=== PATIENT | female | born 1980 | race Caucasian/White ===

== ENCOUNTER → 2016-06-02 | Outpatient (CLI) | payer BC ==
[~2016-06-02] MED LIST: LEVO75TA PO; PRENTAB26 PO
[2016-06-02 11:31] LABS: HEMATOCRIT 38.9 % (37-47)
[2016-06-02 12:36] LABS: URINE APPEARANCE CLEAR (CLEAR); URINE BILIRUBIN NEG (NEG); URINE COLOR YELLOW; URINE EPITHELIAL CELL AUTO >30 /lpf (0-5); URINE NITRITE NEG (NEG); URINE PH 6.5 (4.5-7.5); UROBILINOGEN NEG (NEG)
[2016-06-02 12:38] LABS: MANUAL MICROSCOPIC REQUIRED? NO; REVIEW REQ? NO
[2016-06-02 12:57] LABS: GTGD 50 Grams
== END | disposition home or self-care (01) ==
LOC: C.LAB1850 10:22
PROVIDERS: ATTEND Obstetrics & Gynecology
DX: O09.03 Supervision of pregnancy with history of infertility, third trimester (principal)

== ENCOUNTER → 2016-06-09 | Outpatient (CLI) | payer BC | END | disposition home or self-care (01) | LOC: C.LAB1850 08:14 | PROVIDERS: ATTEND Obstetrics & Gynecology | DX: O28.9 Unspecified abnormal findings on antenatal screening of mother (principal) ==

== ENCOUNTER 2016-07-31 11:24 | Outpatient (CLI) | payer BC ==
[~2016-07-31] VITALS: Ht 162.6 cm; Wt 69.0 kg
[2016-07-31] MEDS ORDERED: PRENTAB26 PO (11:43)
[2016-07-31] MEDS ORDERED: LEVO75TA PO (11:43)
[2016-07-31 11:44] VITALS: Ht 162.6 cm; Wt 69.0 kg
== END 2016-07-31 13:05 | disposition home or self-care (01) ==
LOC: C.LD 11:24 → C.OPB 11:24
PROVIDERS: ATTEND Obstetrics & Gynecology
DX: O26.893 Other specified pregnancy related conditions, third trimester (principal); O09.513 Supervision of elderly primigravida, third trimester; Z3A.36 36 weeks gestation of pregnancy

== ENCOUNTER → 2016-07-31 | Outpatient (CLI) | payer BC | END | disposition home or self-care (01) | LOC: C.LABSPEC 13:25 | PROVIDERS: ATTEND Obstetrics & Gynecology | DX: O09.513 Supervision of elderly primigravida, third trimester (principal) ==

== ENCOUNTER 2016-09-01 21:50 | Inpatient (IN) | payer BC ==
[~2016-09-01] VITALS: Ht 162.6 cm; Wt 69.5 kg
[2016-09-01] MEDS ORDERED: LACTATED RINGER'S 1000ML 1,000 ML IV PRN (22:30)
[2016-09-01] MEDS ORDERED: BUPIVACAINE 0.25% 30 ML VIAL ONE (22:46)
[2016-09-01] MEDS ORDERED: FENTANYL CITRATE INJ 50 MCG/1 ML 2 ML VIAL ONE (22:46)
[2016-09-01] MEDS ORDERED: EpHEDrine SULFATE INJ 50 MG/ML AMP ONE (22:46)
[2016-09-01] MEDS ORDERED: FENTANYL 2MCG/ML ROPIV 1.25MG/ML 100ML BAG EPI ONE (22:46)
[2016-09-01 22:50] VITALS: Ht 162.6 cm; Wt 69.5 kg
[2016-09-01 22:52] LABS: HEMATOCRIT 41.3 % (37-47); MEAN CELL VOLUME 88.1 fL (80-100); MEAN CORPUSCULAR HEMOGLOBIN 30.5 pg (25-34); MEAN CORPUSCULAR HGB CONC 34.6 g/dl (32-36); MEAN PLATELET VOLUME 11.1 fL (7.4-10.4); PLATELET COUNT 216 K/uL (130-400); RED BLOOD COUNT 4.69 M/uL (4.2-5.4); WHITE BLOOD COUNT 16.12 K/uL (4.8-10.8)
[2016-09-01] MEDS: LACTATED RINGER'S 1000ML 1,000 ML IV SCH (23:42)
[2016-09-02] MEDS ORDERED: NALOXONE HCL INJ 1 MG in SODIUM CHLORIDE 0.9% 1000ML 1,000 ML IV PRN (00:08)
[2016-09-02] MEDS ORDERED: LACTATED RINGER'S 1000ML 500 ML IV PRN ×2 (00:08→07:06)
[2016-09-02] MEDS ORDERED: NALOXONE HCL INJ 0.4 MG/1 ML VIAL/CARP IV PRN (00:15)
[2016-09-02] MEDS ORDERED: NALBUPHINE HCL INJ 10 MG/ML AMP IV PRN (00:15)
[2016-09-02] MEDS ORDERED: DiphenhydrAMINE HCL 50 MG/ML VIAL IV PRN (00:15)
[2016-09-02] MEDS ORDERED: EpHEDrine SULFATE INJ 50 MG/ML AMP IV PRN (00:15)
[2016-09-02] MEDS: FENTANYL 2MCG/ML ROPIV 1.25MG/ML 100ML BAG EPI PRN ×2 (06:51→09:09)
[2016-09-02] MEDS: LACTATED RINGER'S 1000ML 1,000 ML IV SCH (07:15)
[2016-09-02] MEDS ORDERED: OXYTOCIN 30 UNITS/500ML NSS IV PRN ×2 (07:15→10:00)
[2016-09-02] MEDS ORDERED: LANOLIN OINT EXT PRN ×2 (10:00)
[2016-09-02] MEDS ORDERED: ACETAMINOPHEN/CODEINE 300/30MG TAB PO PRN ×2 (10:00)
[2016-09-02] MEDS ORDERED: ACETAMINOPHEN 325 MG TAB PO PRN (10:00)
[2016-09-02] MEDS ORDERED: HYDROCORTISONE ACETATE 25 MG SUPP PR PRN (10:00)
[2016-09-02] MEDS ORDERED: OXYCODONE/ACETAMINOPHEN 5-325 TAB PO PRN (10:00)
[2016-09-02] MEDS ORDERED: SUPERCREAM 0.870 % 15GM JAR EXT PRN (10:00)
[2016-09-02] MEDS ORDERED: BENZOCAINE 20% AER SPR 82.5 GM CAN EXT PRN (10:00)
[2016-09-02] MEDS ORDERED: DIPHTHERIA/TETANUS/PERTUSSIS 0.5 ML SYR/VIAL IM. ONE (10:00)
--- NOTE | 2016-09-02 10:34 | DELIVERY SUMMARY ---
DATE OF OPERATION: 09/02/2016 DATE OF DELIVERY: 09/02/2016. PREOPERATIVE DIAGNOSES: 1. Intrauterine at 41-0/7 weeks. 2. Normal labor. POSTOPERATIVE DIAGNOSES: 1. Intrauterine at 41-0/7 weeks. 2. Normal labor. 3. Third degree perineal laceration. PROCEDURES: 1. Epidural anesthesia. 2. Pitocin augmentation. 3. Normal spontaneous vaginal delivery. 4. Third degree perineal laceration with repair. SURGEON: Dr. Peterson. ANESTHESIA: Epidural. ESTIMATED BLOOD LOSS: 400 mL. PROCEDURE: The patient presented to labor and delivery in active labor at 5 cm dilated. She underwent an epidural anesthetic and then progressed spontaneously to complete complete and 0 station. She labored down for an hour and then pushing commenced. Contractions spaced during pushing and after pushing for 2 hours the decision was made to give the patient a rest to start Pitocin augmentation to make the contractions closer together. After approximately another hour the patient pushed for an hour and 15 minutes to deliver a viable female infant in HILL presentation. After delivery the head thick green meconium was noted. This was the first visualization of meconium in this labor. A nuchal cord x1 was reduced and the rest of the infant was then delivered without difficulty. There was an immediate cry and so the nose and mouth were bulb suctioned. The was placed on the maternal abdomen for drying and attention. The cord was clamped and cut. Cord blood and segment were obtained. The placenta was manually extracted to facilitate repair of the third degree laceration. Hemostasis was obtained with dilute Pitocin and fundal massage. A third degree perineal laceration was identified. The muscle was grasped bilaterally with Allis clamps and 3 [id number] sutures of 2-0 Vicryl were used to reapproximate the muscle. The stringing machine operator finger was then placed into the rectum and the patient was asked to squeeze this muscle which she was able to do and this showed what was felt to be appropriate reapproximation. The resultant second degree laceration was then repaired with 3-0 Vicryl in a normal standard fashion. A rectal exam was performed again afterwards and no stitches were noted in the vagina. Estimated blood loss was 400 mL. Apgars were 8 and 9, weight pending. Mother and baby doing well at the end of the delivery. I attest to the content of the Intraoperative Record and any orders documented therein. Any exceptio ns are noted below.
--- NOTE | 2016-09-02 11:16 | Anesthesia Procedure Note ---
Anesthesia Epidural Removal Nt Date & Time Sep 02, 2016 at 11:15 Notes Mental Status: alert / awake / arousable, participated in evaluation Nausea / Vomiting: adequately controlled Pain: adequately controlled Airway Patency, RR, SpO2: stable & adequate BP & HR: stable & adequate Hydration State: stable & adequate Neuraxial Anesthesia: was administered Anesthetic Complications: no major complications apparent, pt satisfied with anesthetic care Epidural: removed without complications, with tip intact
[2016-09-02 15:20] VITALS: BP 113/69; PULSE 82; TEMP 36.8
[2016-09-02] MEDS: IBUPROFEN 600 MG TAB PO PRN ×2 (16:29→21:21)
[2016-09-02 19:40] VITALS: BP 96/60; PULSE 87; TEMP 36.5
[2016-09-02] MEDS: DOCUSATE SODIUM 100 MG CAP PO SCH (19:48)
--- NOTE | 2016-09-02 20:09 | Discharge Instructions ---
Discharge Instructions Date of Service Sep 02, 2016. Admission Reason for Admission: Check Labor Discharge Discharge Diagnosis / Problem: s/p vaginal delivery Discharge Goals Goal(s): Routine recovery after delivery Medications Continue Dispensed Medications: supercream, dermaplast, tucks, lansinoh Activity Recommendations Activity Limitations: per Instructions/Follow-up section . Instructions / Follow-Up Instructions / Follow-Up ACTIVITY RECOMMENDATIONS: * Gradual return to full activity over the next 2-3 weeks. * No lifting - nothing heavier than baby over the next 2-3 weeks. * Do not engage in vigorous exercise, sexual activity or sports until cleared by your physician. * Do not drive or operate any motorized equipment until cleared by your physician. * You may shower/bathe daily. MEDICATIONS: For discomfort or pain, you may use Acetaminophen (Tylenol), Ibuprofen (Advil), or Naproxen (Aleve) following the package directions. For constipation you may use Colace following the package directions. BREAST CARE: If you are not breast feeding: * Wear a supportive bra 24 hours a day for one to two weeks. * Avoid stimulating your breasts and nipples as much as possible during the first few weeks after delivery. * When taking a shower, have the warm water hit your back, not breasts. * When your breasts feel full, apply ice packs. Usually three to four times a day helps ease the discomfort. * Take a mild pain medication (Tylenol / Motrin) when you are uncomfortable. If breast feeding: * Use breast milk to lubricate nipples. Lansinoh cream may be used for sore nipples. You do not need to remove cream prior to breast feeding. If using a different brand of cream, check the label for directions regarding removal of cream prior to nursing. * Wear a supportive bra. * If having problems with breasts or breast feeding, call a sap bw consultant or your health care provider. EPISIOTOMY CARE: After delivery, if you have an episiotomy (stitches), the following steps will ease discomfort and aid healing. * For the first 24 hours after delivery, place ice packs next to your episiotomy to help reduce swelling. * After the first 24 hour-period, sitz baths, either portable or in the tub, are suggested. A shower with a shower arm sprayed over the episiotomy may be comforting. * Soha care should be done after each voiding and bowel movement. Squirt warm water from a plastic bottle over the perineum (region of the body between the anus and urinary opening) and pat dry. * Use Dermoplast to ease discomfort. Shake container. Chazy directly over the episiotomy. Place a Tucks on a clean sanitary pad next to your episiotomy. SPECIAL CARE INSTRUCTIONS: When you are discharged from the hospital, it is important for you to follow the instructions listed below: * During the first week at home, you should be able to care for yourself and your baby. In addition, the usual light household activities are encouraged. * Limit your activities to the way you feel. Do not try to clean the house or move furniture. Be sensible. * If you actively engage in sports and have done so up until the time of your delivery, you may resume these activities as soon as you feel able. This may take up to one month or even longer. Use good judgment. * Continue to take your vitamins for at least six weeks after the of your baby. * Your diet need not be limited unless you were on a special diet before your delivery. Breast-feeding mothers need around 2500 calories per day and at least 64-80 ounces of fluid per day (8 to 10 glasses). * You should eat foods from the four major food groups. Crash diets or fad diets are to be avoided. Eating lean meats, fresh fruits and vegetables, low-fat dairy products, high fiber foods and a regular exercise program, will help you get back to your pre- weight without putting your health at risk. * Constipation is sometimes a problem after delivery. Take a mild laxative as needed. If breast feeding, Milk of Magnesia is acceptable to use. You may use a suppository or Fleets enema if no episiotomy. * A daily shower or tub bath is suggested. Be sure to thoroughly and gently dry the perineum. * A bloody vaginal discharge will usually continue until around four weeks post . A small amount of bleeding may continue for as long as six weeks. Vaginal discharge changes from the bright red bleeding after delivery to pink then brownish and finally yellowish-pink before becoming white and disappearing. * Bleeding may increase with activity. Your first period may come in 4-8 weeks. If you are breast feeding, your period may be delayed even longer. * Seagraves (sex) can begin whenever both you and your partner feel comfortable and do not have any form of genital infection. It is recommended that you wait at least six weeks for internal and external healing to occur. If you have questions, please talk to your health care practitioner. A condom should be used to prevent infection and . * Foreplay, gentle intercourse and lubrication is very important the first several times to prevent pain. A water-based lubricant such as K-Y jelly or Astroglide may be used. * If you have RH negative blood and your baby is RH positive, you will receive RHOGAM by injection prior to discharge. The nurse will give you a card to keep with you that has the date and place that you received RHOGAM after delivery. * During your care, you had a Rubella screen done to check for the presence of rubella antibodies in your blood. If your test was negative, you will receive a Rubella vaccine prior to discharge. This vaccine may cause a fever, soreness at the injection site and flu-like symptoms. If these symptoms persist, notify your health care practitioner. is not advised for one month after a Rubella vaccine. * Verbalizes understanding of car seat law as reviewed with patient nursing. * Car Seat hand-out given and reviewed with patient by nursing. * Shaken baby information reviewed with patient by nursing. Call you doctor if: * Heavy bleeding (saturating several pads an hour) or passing clots the size of your fist. * A fever >101 degrees F (38.3 degrees C) on two occasions four hours apart and /or chills. * Unusual pain in the pelvic or vaginal areas. * "Baby Blues" lasting longer than two weeks. If you have any questions or concerns, call your health care practitioner at . FOLLOW UP VISIT: * Please call the office at to schedule a 6 week examination. It is important you keep this appointment. It is important for you to make arrangements for either yearly or twice yearly check-ups thereafter. Current Hospital Diet Patient's current hospital diet: Regular OB Diet Discharge Diet Recommended Diet: Regular Diet Pending Studies Studies pending at discharge: no Medical Emergencies . Who to Call and When: Medical Emergencies: If at any time you feel your situation is an emergency, please call [phone] immediately. . Non-Emergent Contact Non-Emergency issues call your: [employer] . . "Provider Documentation" section prepared by Nena Peterson. . VTE Core Measure Inpt VTE Proph given/why not?: Treatment not indicated
[2016-09-02 23:20] VITALS: BP 98/62; PULSE 72; TEMP 36.6
[2016-09-03 03:15] VITALS: BP 115/73; PULSE 86; TEMP 36.5
[2016-09-03] MEDS: IBUPROFEN 600 MG TAB PO PRN ×5 (03:24→23:50)
[2016-09-03 07:30] VITALS: BP 96/65; PULSE 73; TEMP 36.5
[2016-09-03 07:30] LABS: HEMATOCRIT 33.7 % (37-47)
[2016-09-03] MEDS: LEVOTHYROXINE 75 MCG TAB PO SCH (07:30)
--- NOTE | 2016-09-03 07:40 | Progress Note ---
Subjective Sep 03, 2016. Subjective conversation w/ patient, physical exam, lab review Ambulation: ambulating normally Voiding: no voiding problems Passing Gas: Yes Diet Tolerance: Regular Diet Lochia: Small Feeding Type: Breast Feeding Pain: controlled with oral pain mes Objective Vital Signs Date Time Temp Pulse Resp B/P Pulse Ox O2 Delivery O2 Flow Rate FiO2 09/03/16 03:15 36.5 86 18 115/73 Room Air 09/02/16 23:20 36.6 72 20 98/62 Room Air 09/02/16 23:20 Room Air 09/02/16 19:40 36.5 87 20 96/60 Room Air 09/02/16 15:20 36.8 82 20 113/69 Physical Exam General Appearance: WELL-APPEARING, WD/WN, NO APPARENT DISTRESS Respiratory/Chest: lungs clear, normal breath sounds Cardiovascular: regular rate, rhythm Abdomen: normal bowel sounds, non tender, soft Fundus: Firm, Non-Tender, Relation to Umbilicus (1 below u) Extremities: non-tender, normal inspection Laboratory Results Last 24 Hours Test 09/03/16 06:51 Hemoglobin 11.1 g/dL Hematocrit 33.7 % Assessment and Plan Post- Day#: 1 Continue Routine Care: Doing well. Routine care.
[2016-09-03] MEDS: PRENATAL VITAMIN TAB PO SCH (09:09)
[2016-09-03] MEDS: DOCUSATE SODIUM 100 MG CAP PO SCH ×2 (09:11→19:53)
[2016-09-03 16:30] VITALS: BP 100/66; PULSE 85; TEMP 36.5
[2016-09-03 23:15] VITALS: BP 105/67; PULSE 79; TEMP 36.6
[2016-09-04] MEDS: IBUPROFEN 600 MG TAB PO PRN ×2 (05:59→10:18)
[2016-09-04] MEDS: LEVOTHYROXINE 75 MCG TAB PO SCH (07:37)
[2016-09-04] MEDS: DOCUSATE SODIUM 100 MG CAP PO SCH (07:37)
[2016-09-04] MEDS: PRENATAL VITAMIN TAB PO SCH (07:37)
[2016-09-04 08:00] VITALS: BP 107/74; PULSE 66; TEMP 36.6
--- NOTE | 2016-09-04 09:06 | Progress Note ---
Subjective Sep 04, 2016. Subjective conversation w/ patient, physical exam, lab review, review of studies Ambulation: ambulating normally Voiding: no voiding problems Passing Gas: Yes Diet Tolerance: Regular Diet Lochia: Small Feeding Type: Breast Feeding Pain: improves with medication Comment: Patient was seen at the bedside. No acute event overnight. Review of Systems Constitutional: No fever Respiratory: No cough, No shortness of breath Cardiac: No chest pain Breast: No breast lump Abdomen: No nausea, No pain, No vomiting Female : No dysuria Denies headache Objective Vital Signs Date Time Temp Pulse Resp B/P Pulse Ox O2 Delivery O2 Flow Rate FiO2 09/04/16 08:00 36.6 66 18 107/74 Room Air 09/03/16 23:15 Room Air 09/03/16 23:15 36.6 79 20 105/67 Room Air 09/03/16 16:30 Room Air 09/03/16 16:30 36.5 85 18 100/66 Physical Exam General Appearance: WELL-APPEARING, WD/WN, NO APPARENT DISTRESS Respiratory/Chest: chest non-tender Cardiovascular: regular rate, rhythm Abdomen: normal bowel sounds, non tender, soft Fundus: Firm, Relation to Umbilicus (3cm below) Extremities: non-tender, no pedal edema, no calf tenderness Medications Current Inpatient Medications Medications (Trade) Dose Ordered Sig/Chana Route Start Time Stop Time Status Last Admin Dose Admin Oxytocin (Pitocin IV) 30 units UD PRN IV 09/02/16 10:00 10/02/16 09:59 Benzocaine (Dermoplast Aero Spr) 1 appln PRN PRN EXT 09/02/16 10:00 10/02/16 09:59 09/02/16 16:28 82.5 APPLN Cocaine HCl (Supercream 0.870% Cr) BID PRN EXT 09/02/16 10:00 09/16/16 09:59 09/03/16 09:12 15 GM Hydrocortisone Acetate (Anusol Hc Supp) 25 mg BID PRN LA 09/02/16 10:00 10/02/16 09:59 Lanolin (Lanolin Oint) PRN PRN EXT 09/02/16 10:00 10/02/16 09:59 Prenat Multivit/ [place]/Iron/Folic Ac ( Vitamin Tab) 1 tab DAILY PO 09/03/16 08:00 10/03/16 07:59 09/04/16 07:37 1 TAB Ibuprofen (Motrin Tab) 600 mg Q4H PRN PO 09/02/16 10:00 10/02/16 09:59 09/04/16 05:59 600 MG Acetaminophen (Tylenol Tab) 650 mg Q6H PRN PO 09/02/16 10:00 10/02/16 09:59 Acetaminophen/ Codeine Phosphate (Tylenol w/ Codeine #3 Tab) 1 tab Q4H PRN PO 09/02/16 10:00 10/02/16 09:59 Acetaminophen/ Codeine Phosphate (Tylenol w/ Codeine #3 Tab) 2 tab Q4H PRN PO 09/02/16 10:00 10/02/16 09:59 Docusate Sodium (coLACE CAP) 100 mg BID PO 09/02/16 20:00 10/02/16 19:59 09/04/16 07:37 100 MG Levothyroxine Sodium (Synthroid Tab) 75 mcg DAILYBB PO 09/03/16 07:30 10/03/16 07:29 09/04/16 07:37 75 MCG Assessment and Plan Post- Day#: 2 Continue Routine Care: A/P: This is a 36 y/o female, , s/p normal vaginal delivery. She is ambulating and clinically stable to discharge. - Vital signs are reviewed and WNL (Tmax 36.6 ) - Last Hgb 11.1 - Blood type O+, GBS neg, Rubella Immune - No signs of depression. - Routine care - Discussed resting, feeding, pain control, mastitis, control, follow up in 6 weeks and reasons to call sooner, if necessary. - Continue with pain medication as needed, and continue vitamins. - Encourage breast feeding and educate about breast feeding - Patient understands and keen for home. - Plan to discharge home Resident Physician Supervision Note: I was present with Dr. Lacy during the history and exam. I discussed the case with the resident and agree with the findings and plan as documented in the note. Any exceptions or clarifications are listed here: PPD#2 doing well. Discharge to home. Documented By: Sol Joy
[2016-09-04 12:10] VITALS: BP 101/66; PULSE 76; TEMP 36.4
[2016-09-04 13:00] VITALS: BP_DIAS 66; PULSE 76; TEMP 36.4
== END 2016-09-04 13:15 | disposition home or self-care (01) | DRG 775 ==
LOC: C.LD 21:50 → C.OPB 21:50 → C.LD 22:33 → C.OBG 09-02 15:23
PROVIDERS: ADMIT Obstetrics & Gynecology; ATTEND Obstetrics & Gynecology
PROC: 10E0XZZ Delivery of Products of Conception, External Approach (ICD-10-PCS; principal; 2016-09-02)
PROC: 0DQR0ZZ Repair Anal Sphincter, Open Approach (ICD-10-PCS; principal; 2016-09-02)
DX: O48.0 Post-term pregnancy (principal); O70.20 Third degree perineal laceration during delivery, unspecified; O69.1XX0 Labor and delivery complicated by cord around neck, with compression, not applicable or unspecified; O77.0 Labor and delivery complicated by meconium in amniotic fluid; Z3A.41 41 weeks gestation of pregnancy; Z37.0 Single live birth

== ENCOUNTER → 2016-10-10 | Outpatient (CLI) | payer BC | END | disposition home or self-care (01) | LOC: C.PAPS 13:51 | PROVIDERS: ATTEND Obstetrics & Gynecology | DX: Z01.419 Encounter for gynecological examination (general) (routine) without abnormal findings (principal) ==

== ENCOUNTER → 2017-10-01 | Outpatient (CLI) | payer BC ==
[2017-10-01 13:26] LABS: HEMATOCRIT 42.6 % (37-47); HEMOGLOBIN 14.4 g/dL (12.0-16.0); MEAN CORPUSCULAR HEMOGLOBIN 28.7 pg (25-34); MEAN CORPUSCULAR HGB CONC 33.8 g/dl (32-36); MEAN PLATELET VOLUME 11.5 fL (7.4-10.4); PLATELET COUNT 227 K/uL (130-400); RED CELL DISTRIBUTION WIDTH CV 13.1 % (11.5-14.5); RED CELL DISTRIBUTION WIDTH SD 40.7 fL (36.4-46.3); WHITE BLOOD COUNT 6.65 K/uL (4.8-10.8)
[2017-10-01 14:42] LABS: ALBUMIN 4.1 gm/dl (3.4-5.0); ALKALINE PHOSPHATASE 133 U/L (45-117); ALT/SGPT 26 U/L (12-78); AST/SGOT 18 U/L (15-37); BLOOD UREA NITROGEN 14 mg/dl (7-18); CALCIUM 9.1 mg/dl (8.5-10.1); CARBON DIOXIDE 29 mmol/L (21-32); CHOLESTEROL 198 mg/dl (0-200); GLUCOSE 81 mg/dl (70-99); LDL CHOLESTEROL CALCULATED 116 mg/dl; POTASSIUM 3.9 mmol/L (3.5-5.1); SODIUM 139 mmol/L (136-145); TOTAL PROTEIN 7.8 gm/dl (6.4-8.2)
[2017-10-01 14:43] LABS: HEP C IGG 13 YRS+OLDER_RFLX NEG (NEG)
== END | disposition home or self-care (01) ==
LOC: C.LABBC 10:56
PROVIDERS: ATTEND Obstetrics & Gynecology Reproductive Endocrinology
DX: Z31.41 Encounter for fertility testing (principal); Z13.220 Encounter for screening for lipoid disorders; E03.9 Hypothyroidism, unspecified

== ENCOUNTER → 2018-01-07 | Outpatient (CLI) | payer BC ==
[2018-01-07 11:39] LABS: FOLLICLE STIMULAT HORMONE 12.32 IU/L; LUTEINIZING HORMONE 7.46 IU/L
== END | disposition home or self-care (01) ==
LOC: C.LAB1850 10:39
PROVIDERS: ATTEND Obstetrics & Gynecology Reproductive Endocrinology
DX: Z31.41 Encounter for fertility testing (principal)

== ENCOUNTER 2019-12-16 07:33 | Inpatient (IN) ==
[2019-12-16] MEDS ORDERED: OXYTOCIN 30 UNITS/500 ML BAG IV PRN ×4 (08:25→21:30)
[2019-12-16 08:44] LABS: Hematocrit (blood only) 41.3 % (37-47); Mean Corpuscular Hemoglobin 30.2 pg (25-34); Mean Corpuscular Volume 89.2 fL (80-100); Mean Platelet Volume 11.2 fL (7.4-10.4); Platelet Count 167 K/uL (130-400); RDW Coefficient of Variation 14.2 % (11.5-14.5); RDW Standard Deviation 46.5 fL (36.4-46.3); Red Blood Count 4.63 M/uL (4.2-5.4); White Blood Count 9.84 K/uL (4.8-10.8)
--- NOTE | 2019-12-16 08:46 | History & Physical Report ---
Date of Service December 16, 2019 Assessment & Plan (1) Encounter for induction of labor: Alaina is a 39 y/o female currently at 40-4/7 WGA with an AURELIA 12/12/19 as determined manually per [place] transfer date (in setting of IVF) who is here for induction of in the setting of a post-date . Her is significant for conception by IVF (followed by weekly NSTs and AFIs beginning at 36 WGA), advanced maternal age (39), and hypothyroidism managed on levothyroxine. - Mom feeling well. Baby is Cat I, +FHT with an est. weight ~7-8lb. - IOL: Will begin Pitocin protocol, anticipate - Patient requests epidural -- anesthesia will be consulted Blood Type: O+ GBS: negative Rubella immune History of Present Illness Primary Care Provider: Clay Tolliver Alaina is a 39 y/o female currently at 40-4/7 WGA with an AURELIA 12/12/19 as determined manually per [place] transfer date (in setting of IVF) who is here for induction of in the setting of a post-date . Her is significant for conception by IVF (followed by weekly NSTs and AFIs beginning at 36 WGA), advanced maternal age (39), and hypothyroidism managed on levothyroxine. Denies contractions; reports good movement; denies fluid loss; denies bloody show External FHT and external uterine monitors used; Category I tracing; +FHT variability. Had regular appointments with OB. Labs: (06/10/19) Blood type: O+ Antibody screen: neg H.9 (09/19/19) Hct: 36.5 (09/19/19) WBC: 9.27 (06/10/19) Plt: 255 (06/10/19) Rubella: immune VDRL/RPR: neg Gonorrhea: neg Chlamydia: neg HIV: neg HbSAg: neg GBS: neg Allergies Allergy/AdvReac Type Severity Reaction Status Date / Time No Known Allergies Allergy Verified 12/15/19 10:12 Home Medications Home Medications Medication Instructions Recorded Confirmed Type levothyroxine [Synthroid] 88 mcg PO DAILY 12/16/19 12/16/19 History vit-iron fum-folic ac 1 tab PO DAILY 12/16/19 12/16/19 History [ Vitamin with Minerals] Patient History Social History Smoking Status: Never smoker Second Hand Exposure: No; Do You Dip or Chew Tobacco: No; Tobacco Cessation Education Requested by Patient: No Hx Alcohol Use: No Hx Substance Use: No Preferred Language: [place] Communication Ability: Effective Thread Marker Required: No Beliefs That Will Affect Care: None marital status: marital status details: Oscar Blanco (43) [phone] Current Living Situation: Spouse and Family Current Living Situation Comment: and daughter current occupational status: unemployed current occupation: homemaker Other Information That Helps Us Care for You: No Feels Safe at Home: Yes Safety Concerns: Feels Safe At This Time Review of Systems no fever, no chills and no sweats denies headaches, changes in vision no dyspnea no chest pain, no dyspnea, no dyspnea at rest and no palpitations no dysuria no breast pain Physical Exam Physical Exam: General: Alert, oriented. No acute distress. Cardiac: Regular rate and rhythm, no murmurs/rubs/gallops. Respiratory: Clear to auscultation bilaterally a/p, no wheezes/rales/rhonchi. No increased work of breathing. Symmetrical chest rise. No respiratory distress. Pelvic: Dilation 2 cm; Effacement 70%; Station -[address] Benito Lower Extremities: No lower extremity edema or swelling. No deep calf pain. Ky's negative bilaterally Genitourinary: OB Exam Abdomen: + estimated weight (7-8 pounds) and + irregular contractions OB Exam Monitor Tracing: + external FHT monitor used, + external uterine monitor used, + category I and + normal FHT variability Results & Data Vital Signs (Past 12 Hours) Vital Signs Temp Pulse Resp BP 12/16/19 07:45 86 118/81 12/16/19 07:44 36.6 C 18 Supervising Physician Co-Signing Physician Notes Resident Physician Supervision Note: I interviewed and examined the patient. Discussed with Dr. Shepherd and agree with findings and plan as documented in the note. Any exceptions or clarifications are listed here: [None] Documented By: Jennifer Hassan MD, FACOG Resident Activity Tracking Resident Involvement: Resident Care Provided Care Provided: Adult Hospital Medicine and OB Delivery
[2019-12-16] MEDS: LACTATED RINGER'S 1,000 ML IV PRN ×2 (08:52→17:00)
[2019-12-16 09:04] LABS: Mean Corpuscular Hgb Conc 33.9 g/dL (32-36)
[2019-12-16] MEDS ORDERED: ePHEDrine sulfate 50 MG/ML AMP ONE (16:29)
[2019-12-16] MEDS ORDERED: fentaNYL citrate 100 MCG/2 ML VIAL ONE (16:30)
[2019-12-16] MEDS ORDERED: BUPIVACAINE 0.25% 30 ML VIAL ONE (16:30)
[2019-12-16] MEDS ORDERED: fentaNYL 2MCG/ML ROPIV 1.25MG/ML 100 ML BAG EPI ONE (16:31)
[2019-12-16] MEDS ORDERED: DiphenhydrAMINE HCL 50 MG/ML VIAL IV PRN (16:36)
[2019-12-16] MEDS ORDERED: NALOXONE HCL 1 MG in SODIUM CHLORIDE 0.9% 1000ML 1,000 ML IV PRN (16:36)
[2019-12-16] MEDS ORDERED: fentaNYL 2MCG/ML ROPIV 1.25MG/ML 100 ML BAG EPI PRN (16:36)
[2019-12-16] MEDS ORDERED: ONDANSETRON INJ 2 MG/ML 2 ML VIAL IV PRN (16:36)
[2019-12-16] MEDS ORDERED: NALOXONE HCL 0.4 MG/1 ML VIAL/CARP IV PRN (16:36)
[2019-12-16] MEDS ORDERED: ePHEDrine sulfate 50 MG/ML AMP IV PRN (16:36)
--- NOTE | 2019-12-16 16:39 | Anesthesiology Consultation ---
Date of Service December 16, 2019 Assessment & Plan (1) Encounter for pre-operative examination: Chart Review Chart Review: Patient NOT seen in Pre Admission Testing and Acceptable Risk for Labor Epidural Consults Requested none History Height/Weight Height: 5 ft 4 in Weight: 71.214 kg Allergies Allergy/AdvReac Type Severity Reaction Status Date / Time No Known Allergies Allergy Verified 12/15/19 10:12 Medications Home Medications Medication Instructions Recorded Confirmed Last Taken levothyroxine [Synthroid] 88 mcg PO DAILY 12/16/19 12/16/19 12/16/19 06:00 vit-iron fum-folic ac 1 tab PO DAILY 12/16/19 12/16/19 12/15/19 08:00 [ Vitamin with Minerals] Active Medications Generic Name Dose Route Start Last Admin Trade Name Freq PRN Reason Stop Dose Admin Lactated Ringer's 1,000 mls @ 125 mls/hr 12/16/19 08:25 12/16/19 08:52 Lr IV 12/18/19 08:24 125 mls/hr .Q8H PRN Administration L&D Protocol Protocol Oxytocin 30 units in 500 mls @ 15 mls/hr 12/16/19 08:25 12/16/19 14:45 Pitocin IV 12/18/19 08:24 0.9 units/hr .Q24H PRN 15 mls/hr Labor Induction/Augmentation Titration Protocol 0.9 UNITS/HR Past Medical History Medical History 40 weeks gestation of Elderly multigravida tachycardia affecting management of mother History of chicken pox Migraine with 36 completed weeks gestation Exercise / Class Metabolic Activity II 4-5 Yardwork/Stairs/Walk up hill Past Family History Family History Grandfather (Paternal) Heart disease Past Surgical History Surgical History S/P dilatation and curettage S/P wisdom tooth extraction Past Anesthesia History No Hx of Anesthesia Complications and No Family Hx of Anesthesia Complications History of PONV No Hx of PONV and No Hx of Motion Sickness Social History Smoking Status: Never smoker Do You Dip or Chew Tobacco: No Hx Alcohol Use: No Alcohol type: hard liquor Hx Substance Use: No substance use type: does not use Physical Exam Vital Signs Last Vital Signs Temp 36.7 C 12/16/19 15:00 Pulse 84 12/16/19 16:54 Resp 18 12/16/19 15:00 BP 108/66 12/16/19 16:54 Pulse Ox 100 12/16/19 16:54 Testing Laboratory Results 12/16/19 08:32
[2019-12-16] MEDS ORDERED: OXYCODONE/ACETAMINOPHEN 5mg/325mg TAB PO PRN (21:30)
[2019-12-16] MEDS ORDERED: ACETAMINOPHEN 325 MG TAB PO PRN (21:30)
[2019-12-16] MEDS ORDERED: SUPERCREAM 0.870% 15 GM JAR EXT PRN (21:30)
[2019-12-16] MEDS ORDERED: DIPHTHERIA/TETANUS/PERTUSSIS 0.5 ML SYR/VIAL IM ONE (21:30)
[2019-12-16] MEDS ORDERED: HYDROCORTISONE ACETATE 25 MG SUPP PR PRN (21:30)
[2019-12-16] MEDS ORDERED: BENZOCAINE 20% AER SPR 82.5 GM CAN EXT PRN (21:30)
[2019-12-16] MEDS ORDERED: bisacodyL 10 MG SUPP PR PRN (21:30)
--- NOTE | 2019-12-16 21:57 | Anesthesia Procedure Note ---
Date of Service December 16, 2019 Anesthesia Post Epidural Note Vital Signs Vital Signs: Temp Pulse Resp BP Pulse Ox 37.0 C 75 20 116/64 93 12/16/19 20:46 12/16/19 21:46 12/16/19 20:59 12/16/19 21:46 12/16/19 21:14 Pain Intensity Bilateral Abdomen: Pain Intensity: 0 Notes Mental Status: alert / awake / arousable and participated in evaluation Patient Amnestic to Procedure: No Nausea / Vomiting: adequately controlled Pain: adequately controlled Airway Patency, RR, SpO2: stable & adequate BP & HR: stable & adequate Hydration State: stable & adequate Neuraxial Anesthesia: was administered and sensory block is resolving Anesthetic Complications: no major complications apparent and Pt Satisfied with anesthetic care Epidural: Removed without complications and With tip intact
--- NOTE | 2019-12-16 22:37 | Delivery Summary ---
Vaginal Delivery Summary Date of Service December 16, 2019 Patient is a 39-year-old 2 para 1-0-0-1 white female who presents for induction of labor because of postterm ' she was begun on Pitocin augmentation of her labor. Membranes were ruptured for clear fluid. She received effective epidural analgesia. She progressed to full dilation with moderate variable decelerations. She pushed effectively over intact perineum over 4 contractions for delivery of a viable female . There was a tight nuchal cord present which reduced spontaneously as the left hand delivered. The rest of the infant delivered easily and was placed on the mother's abdomen for further attention and drying. There was vigorous crying and the was moving all 4 limbs. The cord was clamped and cut after 1 minute of life. After cord blood was obtained the placenta was expressed intact with a three-vessel cord. A second-degree perineal laceration was repaired with 3-0 chromic in the usual fashion. Estimated blood loss was 350 cc. initially Required CPAP but responded well. bleeding was controlled with dilute Pitocin. Mother and infant were then stable after delivery[place] [facility] [place] Vaginal Delivery Codes: 39318 global code for the antepartum, delivery, and post-
[2019-12-17] MEDS: IBUPROFEN 600 MG TAB PO PRN ×4 (03:35→20:05)
--- NOTE | 2019-12-17 05:47 | Obstetrical Progress Note ---
Date of Service <Aldo Shepherd MD - Last Filed: 12/17/19 06:39> December 17, 2019 Assessment & Plan <Aldo Shepherd MD - Last Filed: 12/17/19 06:39> (1) Encounter for induction of labor: Alaina is a 39 y/o female [id number] who is now PPD #1 following IOL with subsequent at 40-4/7 weeks in setting of post-date . Her is significant for conception by IVF (followed by weekly NSTs and AFIs beginning at 36 WGA), advanced maternal age (39), and hypothyroidism managed on levothyroxine. - Feels well today. Eating well, voiding well, ambulating well. - Pain well controlled with ibuprofen 600mg Q4H PRN. - Routine PPD care -- OOB, ambulation, diet progression as tolerated Subjective <Aldo Shepherd MD - Last Filed: 12/17/19 06:39> Alaina is a 39 y/o female [id number] who is now PPD #1 following IOL with subsequent at 40-4/7 weeks in setting of post-date . Reports feeling well overall this morning. Endorses minimal abdominal cramping that is well managed on analgesics. Voiding without difficulty. Tolerating meals overnight and able to ambulate some. Not yet passing gas and no bowel movements yet. Some persistent lochia with some improvement this morning. Breast feeding without difficulty. Review of Systems Denies fever, chills, sweats Denies shortness of breath, difficulty breathing, chest pain, palpitations, c hest pressure. Denies breast pain. Denies dysuria. Denies headache. Physical Exam <Aldo Shepherd MD - Last Filed: 12/17/19 06:39> General: Alert, oriented. No acute distress. Cardiac: Regular rate and rhythm, no murmurs/rubs/gallops. Respiratory: Clear to auscultation bilaterally a/p, no wheezes/rales/rhonchi. No increased work of breathing. Symmetrical chest rise. No respiratory distress. Abdomen: Soft, nontender, nondistended. Bowel sounds present. Uterus: Uterine fundus firm, palpable at level of umbilicus. Lower Extremities: No lower extremity edema or swelling. No deep calf pain. Ky's negative bilaterally. Results & Data <Aldo Shepherd MD - Last Filed: 12/17/19 06:39> Vital Signs (Past 12 Hours) Vital Signs Temp Pulse Pulse Resp BP BP Pulse Ox 12/17/19 03:30 36.5 C 72 16 118/78 100 12/17/19 00:15 36.6 C 80 16 103/68 98 12/16/19 23:17 36.7 C 82 16 112/66 12/16/19 22:46 78 18 114/63 12/16/19 22:31 79 16 113/62 12/16/19 22:16 75 18 110/58 L 12/16/19 22:01 93 H 20 120/73 12/16/19 21:46 75 20 116/64 12/16/19 21:31 86 18 115/64 12/16/19 21:16 36.7 C 80 18 112/62 12/16/19 21:14 77 93 12/16/19 21:09 79 92 12/16/19 21:04 83 91 12/16/19 20:59 143 H 20 91 12/16/19 20:57 88 119/64 12/16/19 20:54 87 93 12/16/19 20:49 106 H 92 12/16/19 20:46 37.0 C 93 H 121/73 12/16/19 20:44 108 H 92 12/16/19 20:43 107 H 93 12/16/19 20:39 101 H 92 12/16/19 20:34 73 92 12/16/19 20:30 20 12/16/19 20:29 81 92 12/16/19 20:28 77 116/73 12/16/19 20:24 73 92 12/16/19 20:19 77 92 12/16/19 20:14 78 92 12/16/19 20:11 76 126/80 12/16/19 20:09 103 H 90 12/16/19 20:04 86 92 12/16/19 20:00 18 12/16/19 19:59 78 91 12/16/19 19:57 73 105/62 12/16/19 19:54 77 91 12/16/19 19:49 80 92 12/16/19 19:44 80 92 12/16/19 19:42 83 170/107 H 12/16/19 19:39 85 92 12/16/19 19:34 81 92 12/16/19 19:30 18 12/16/19 19:29 85 93 12/16/19 19:27 83 110/69 12/16/19 19:24 80 93 12/16/19 19:19 78 92 12/16/19 19:14 74 92 12/16/19 19:11 74 107/63 12/16/19 19:09 81 93 12/16/19 19:04 89 92 12/16/19 19:02 36.8 C 18 12/16/19 18:59 77 93 12/16/19 18:57 67 110/69 12/16/19 18:54 73 93 12/16/19 18:49 65 92 12/16/19 18:44 66 93 12/16/19 18:41 65 104/63 12/16/19 18:39 67 94 12/16/19 18:34 67 93 12/16/19 18:30 18 12/16/19 18:29 66 94 12/16/19 18:27 64 116/65 12/16/19 18:24 63 94 12/16/19 18:22 65 94 12/16/19 18:19 67 94 12/16/19 18:16 66 94 12/16/19 18:14 66 94 12/16/19 18:12 70 112/73 12/16/19 18:11 71 94 12/16/19 18:09 84 96 12/16/19 18:04 77 95 12/16/19 18:03 70 94 12/16/19 17:59 69 94 12/16/19 17:58 74 108/62 12/16/19 17:54 80 95 12/16/19 17:53 76 94 12/16/19 17:49 74 95 <Jennifer Hassan MD, FACOG - Last Filed: 12/17/19 07:23> Co-Signing Physician Notes Resident Physician Supervision Note: I interviewed and examined the patient. Discussed with Dr. Shepherd and agree with f indings and plan as documented in the note. Any exceptions or clarifications are listed here: [None] Documented By: Jennifer Hassan MD, FACOG Resident Activity Tracking <Aldo Shepherd MD - Last Filed: 12/17/19 06:39> Resident Involvement: Resident Care Provided Care Provided: Adult Hospital Medicine and OB Delivery
[2019-12-17] MEDS: LEVOTHYROXINE SODIUM 88 MCG TABLET PO SCH (06:09)
[2019-12-17 06:52] LABS: Hematocrit (blood only) 35.5 % (37-47); Hemoglobin 12.1 g/dL (12.0-16.0); Mean Corpuscular Hemoglobin 30.3 pg (25-34); Mean Corpuscular Hgb Conc 34.1 g/dL (32-36); Mean Platelet Volume 11.5 fL (7.4-10.4); Platelet Count 172 K/uL (130-400); RDW Coefficient of Variation 14.1 % (11.5-14.5); RDW Standard Deviation 46.5 fL (36.4-46.3); Red Blood Count 3.99 M/uL (4.2-5.4); White Blood Count 15.31 K/uL (4.8-10.8)
[2019-12-17] MEDS: DOCUSATE SODIUM 100 MG CAP PO SCH ×2 (07:30→20:06)
[2019-12-17] MEDS ORDERED: PRENATAL VITAMIN 1 TAB PO SCH (08:00)
[2019-12-17] MEDS ORDERED: bisacodyL 5 MG TABEC PO SCH (20:00)
--- NOTE | 2019-12-18 05:33 | Obstetrical Progress Note ---
Date of Service <Aldo Shepherd MD - Last Filed: 12/18/19 05:33> December 18, 2019 Assessment & Plan <Aldo Shepherd MD - Last Filed: 12/18/19 05:33> (1) Encounter for induction of labor: Alaina is a 39 y/o female [id number] who is now PPD #2 following IOL with subsequent at 40-4/7 weeks in setting of post-date . Her is significant for conception by IVF (followed by weekly NSTs and AFIs beginning at 36 WGA), advanced maternal age (39), and hypothyroidism managed on levothyroxine. - Feels well today. Eating well, voiding well, ambulating well. - Pain well controlled with ibuprofen 600mg Q4H PRN. - Routine PPD care -- OOB, ambulation, diet progression as tolerated - Anticipate d/c today -- stable Subjective <Aldo Shepherd MD - Last Filed: 12/18/19 05:33> Alaina is a 39 y/o female [id number] who is now PPD #2 following IOL with subsequent at 40-4/7 weeks in setting of post-date . Reports feeling well overall this morning. Endorses minimal abdominal cramping that is well managed on analgesics. Voiding without difficulty. Tolerating meals overnight and able to ambulate some. Passing gas but no bowel movements yet. Some persistent lochia with some improvement this morning. Breast feeding without difficulty. Review of Systems Denies fever, chills, sweats Denies shortness of breath, difficulty breathing, chest pain, palpitations, chest pressure. Denies breast pain. Denies dysuria. Denies headache. Physical Exam <Aldo Shepherd MD - Last Filed: 12/18/19 05:33> General: Alert, oriented. No acute distress. Cardiac: Regular rate and rhythm, no murmurs/rubs/gallops. Respiratory: Clear to auscultation bilaterally a/p, no wheezes/rales/rhonchi. No increased work of breathing. Symmetrical chest rise. No respiratory distress. Abdomen: Soft, nontender, nondistended. Bowel sounds present. Uterus: Uterine fundus firm, palpable 1 cm below umbilicus. Lower Extremities: No lower extremity edema or swelling. No deep calf pain. Ky's negative bilaterally. Results & Data <Aldo Shepherd MD - Last Filed: 12/18/19 05:33> Vital Signs (Past 12 Hours) Vital Signs Temp Pulse Resp BP 12/18/19 00:00 36.6 C 86 18 104/74 12/17/19 20:05 36.6 C 86 16 108/73 <Kathryn De La Cruz MD - Last Filed: 12/18/19 07:10> Co-Signing Physician Notes I have reviewed the resident's note and examined the patient myself, and agree with the note above. Resident Activity Tracking <Aldo Shepherd MD - Last Filed: 12/18/19 05:33> Resident Involvement: Resident Care Provided Care Provided: Adult Hospital Medicine and OB Delivery
[2019-12-18] MEDS: IBUPROFEN 600 MG TAB PO PRN (05:35)
[2019-12-18] MEDS: LEVOTHYROXINE SODIUM 88 MCG TABLET PO SCH (05:36)
[2019-12-18 06:39] LABS: Hematocrit (blood only) 34.2 % (37-47); Hemoglobin 11.5 g/dL (12.0-16.0)
== END 2019-12-18 12:31 | disposition home or self-care (01) | DRG 807 ==
LOC: 4S1 07:33 → 4S2 23:52